=== PATIENT | female | born 1985 | race Caucasian/White ===

== ENCOUNTER 2017-10-18 09:50 | Emergency (ER) | payer BC, OTHER ==
[2017-10-18 10:00] VITALS: BP 113/73; PULSE 59; RESP 20; TEMP 96.8
[2017-10-18 10:01] VITALS: BMI 29.2
[2017-10-18 10:19] VITALS: O2SAT 98
--- NOTE | 2017-10-18 10:42 | ED PDOC ---
Lower Extremity Pain/Injury Time Seen by Provider: 10/18/17 10:27 Chief Complaint (Nursing): Lower Extremity Problem/Injury History Per: Patient Additional Complaint(s): Pt. states 3 weeks ago she injured the R ankle when she tripped while wearing high heeled shoes. States she's been walking and over the past week pain has worsened on the foot and ankle. Denies numbness, tingling, other injury. Past Medical History Reviewed: Historical Data, Nursing Documentation, Vital Signs Vital Signs: Last Vital Signs Temp 96.8 F L 10/18/17 09:59 Pulse 59 L 10/18/17 09:59 Resp 20 10/18/17 09:59 BP 113/73 10/18/17 09:59 Pulse Ox 98 10/18/17 10:15 - Surgical History Surgical History: No Surg Hx - Family History Family History: States: No Known Family Hx - Allergies Allergies/Adverse Reactions: Allergies Allergy/AdvReac Type Severity Reaction Status Date / Time No Known Allergies Allergy Verified 10/18/17 10:19 Review of Systems ROS Statement: Except As Marked, All Systems Reviewed And Found Negative Musculoskeletal: Positive for: Foot Pain Physical Exam - Physical Exam Appears: Positive for: Well, Non-toxic, No Acute Distress Skin: Positive for: Normal Color, Warm. Negative for: Rash Eye Exam: Positive for: Normal appearance Pulses-Dorsalis Pedis (L): 2+ Pulses-Dorsalis Pedis (R): 2+ Extremity: Positive for: Normal ROM (FROM actively of R foot and R ankle), Other (R Ankle and Foot: no tenderness, swelling, or deformity: non-intact vesicle on lateral aspect of R foot (due to new sandals as per patient)) Neurologic/Psych: Positive for: Alert, Oriented - ECG O2 Sat by Pulse Oximetry: 98 - Progress ED Course And Treament: R ankle/foot x-rays ordered. Pt. offered pain meds but refused. Ankle immobilized in ankle aircast splint by wireless technician. Crutches provided. Disposition - Clinical Impression Clinical Impression: Ankle injury - Patient ED Disposition Is Patient to be Admitted: No - Disposition Referrals: [facility] [Outside] Cornelius Bennett DPM [Medical Doctor] - Disposition: Routine/Home Disposition Time: 11:58 Condition: STABLE Additional Instructions: Follow up with volunteer coordinator for further evaluation. Return to ED immediately if symptoms worsen. Instructions: Ankle Sprain (DC), How to Use Crutches Forms: [employer] ([place]ian) Print Language: VIET[place]ESE
--- NOTE | 2017-10-18 17:06 | RAD ---
PROCEDURE: Right Ankle Radiographs. HISTORY: trauma COMPARISON: None FINDINGS: BONES: No acute fracture or destructive bony lesion identified. JOINTS: Normal. No osteoarthritis. Ankle mortise maintained. Talar dome intact SOFT TISSUES: Normal. OTHER FINDINGS: None. IMPRESSION: Unremarkable right ankle radiographs.
--- NOTE | 2017-10-18 17:08 | RAD ---
PROCEDURE: Right Foot Radiographs. HISTORY: trauma COMPARISON: None. FINDINGS: BONES: No acute fracture or destructive bony lesion identified. JOINTS: Mild hallux valgus deformity identified. SOFT TISSUES: Normal. OTHER FINDINGS: None. IMPRESSION: Right hallux valgus deformity appears mild. No acute fracture or dislocation right foot.
== END 2017-10-18 11:58 | disposition home or self-care (01) ==
LOC: H.ER 09:50
DX: S99.921A Unspecified injury of right foot, initial encounter (principal); S99.911A Unspecified injury of right ankle, initial encounter